=== PATIENT | female | born 1970 | race Caucasian/White ===

== ENCOUNTER 2020-02-07 14:27 | Outpatient (RCR) | payer BC ==
[~2020-02-07] VITALS: Ht 160 cm; Wt 77.9 kg
[2020-02-07 16:34] VITALS: BP 146/50; PULSE 54; TEMP 98.1
[2020-02-07] MEDS ORDERED: ALEVE 220MG220 MG PO (16:39)
[2020-02-07 16:40] VITALS: BP 146/50; PULSE 54; TEMP 98.1
[2020-02-07] MEDS ORDERED: ONE-A-DAY ESSE1 EACH PO (16:40)
[2020-02-07 16:52] VITALS: BP 138/81; PULSE 54; TEMP 98.3
[2020-02-07 17:07] VITALS: BP 126/65; PULSE 59; TEMP 98.1
[2020-02-07 17:40] VITALS: BP 144/79; PULSE 62; TEMP 98.2
[2020-02-07 18:39] VITALS: BP 134/79; PULSE 62; TEMP 98.4
== END 2020-02-07 19:00 | disposition home or self-care (01) ==
LOC: EUO 14:27
DX: D50.9 Iron deficiency anemia, unspecified (principal)
CPT/HCPCS: J7050; P9016

== ENCOUNTER → 2020-02-10 | Outpatient (CLI) | payer BC ==
[~2020-02-10] MED LIST: ALEVE 220MG220 MG PO; ONE-A-DAY ESSE1 EACH PO
== END ==
LOC: COL.RAD 15:30
DX: R06.00 Dyspnea, unspecified (principal); R79.89 Other specified abnormal findings of blood chemistry
CPT/HCPCS: Q9967

== ENCOUNTER → 2020-02-10 | Outpatient (CLI) | payer BC ==
[2020-02-10 13:58] LABS: BASO % 0.5 % (0.0-2.0); EOS # 0.4 (0.0-0.7); EOS % 5.9 % (0-4.0); GRAN # 3.8 (1.4-6.5); GRAN % 64.1 % (42.2-75.2); LYMPH # 1.4 (1.2-3.4); LYMPH % 23.4 % (20.0-51.0); MEAN CORPUSCULAR HGB CONC 26 g/dl (33.0-37.0); MEAN PLATELET VOLUME 9.5 fl (7.4-10.4); MONO # 0.3 (0.1-0.6); MONO % 5.8 % (1.7-9.3); PLATELET COUNT 308 K/mm3 (130-400); RED BLOOD COUNT 4.57 M/mm3 (4.10-5.30); REDCELL DISTRIBUTION WIDTH-CV 22.9 % (11.5-14.5)
[2020-02-10 13:59] LABS: HEMATOCRIT 29.9 % (37.0-47.0); HEMOGLOBIN 7.7 g/dl (12.5-16.0); MEAN CELL VOLUME 65 fl (80.0-100.0); MEAN CORPUSCULAR HEMOGLOBIN 17 pg (27.0-31.0)
== END ==
LOC: COL.RAD → COL.LAB 11:56 → COL.RAD 12:04
PROVIDERS: Family Medicine
DX: R06.00 Dyspnea, unspecified (principal)

== ENCOUNTER → 2020-06-30 | Outpatient (CLI) | payer BC | LOC: MC.RAD 13:45 | DX: Z12.31 Encounter for screening mammogram for malignant neoplasm of breast (principal) ==